=== PATIENT | male | born 1995 | race African-American/Black ===

== ENCOUNTER 2016-05-24 14:42 | Emergency (ER) | payer BC ==
[~2016-05-24] VITALS: Ht 188 cm; Wt 76.2 kg
[~2016-05-24 14:42] MED LIST: BENZ2TAB5 PO; PALI234D IM
--- NOTE | 2016-05-24 16:03 | PHYS DOC ---
Past Medical History Past Medical History: Anxiety, Depression, GERD, Other Additional Past Medical Histor: schizoaffective disorder Past Surgical History: No Surgical History Additional Information: 1 PPD Alcohol Use: Occasionally Drug Use: Marijuana Adult General Chief Complaint Chief Complaint: ABDOMINAL PAIN HPI HPI Patient is a 21 year old male who presents with abdominal pain. Patient reports for the past 4 months he has been having intermittent mild periumbilical pain. This pain has gotten worse the past two days. He describes a cramping, sharp pain that waxes and wanes without mitigating factors. Other symptoms include nausea, chills, diarrhea. He has not taken anything for symptoms at home. No other acute complaints. Review of Systems Review of Systems Constitutional: Chills. Denies fever Eyes: Denies change in visual acuity or eye pain HENT: Denies nasal congestion or sore throat Respiratory: Denies cough or shortness of breath Cardiovascular: Denies chest pain GI: Periumbilical pain, nausea, diarrhea. Denies vomiting, bloody stools : Denies dysuria or hematuria Musculoskeletal: Denies back pain or joint pain Integument: Denies rash or skin lesions Neurologic: Denies headache, focal weakness or sensory changes Current Medications Current Medications Current Medications Medications (Trade) Dose Ordered Sig/Ansley Start Time Stop Time Status Last Admin Dose Admin Famotidine (Pepcid) 20 mg 1X ONCE 05/24/16 16:15 05/24/16 16:16 DC 05/24/16 16:30 20 MG Multi-Ingredient Mouthwash/Gargle (Gi Cocktail Single Dose) 15 ml 1X ONCE 05/24/16 16:15 05/24/16 16:16 DC 05/24/16 16:30 15 ML Ondansetron HCl (Zofran Odt) 4 mg 1X ONCE 05/24/16 16:15 05/24/16 16:16 DC 05/24/16 16:30 4 MG Allergies Allergies Allergies Coded Allergies Type Severity Reaction Last Updated Verified No Known Drug Allergies 11/15/15 No Physical Exam Physical Exam Constitutional: Well developed, well nourished, no acute distress, non-toxic appearance HENT: Normocephalic, atraumatic, bilateral external ears normal Eyes: EOMI, conjunctiva normal, no discharge Neck: Normal range of motion, no stridor Cardiovascular: Heart rate normal, regular rhythm, no murmur Lungs & Thorax: Bilateral breath sounds clear to auscultation Abdomen: Bowel sounds normal, soft, non-distended, mild LUQ/epigastric TTP without guarding or rebound Skin: Warm, dry, no erythema, no rash Extremities: No obvious deformity, no edema Neurologic: Alert and oriented X 3, no gross deficits noted Current Patient Data Vital Signs Vital Signs Date Time Temp Pulse Resp B/P Pulse Ox O2 Delivery O2 Flow Rate FiO2 05/24/16 17:25 80 16 130/63 99 Room Air 05/24/16 14:56 97.9 97.9 Lab Values Laboratory Tests Test 05/24/16 16:40 White Blood Count 6.8x10^3/uL (4.0-11.0) Red Blood Count 5.24x10^6/uL (4.30-5.70) Hemoglobin 16.1g/dL (13.0-17.5) Hematocrit 47.3% (39.0-53.0) Mean Corpuscular Volume 90fL (79-100) Mean Corpuscular Hemoglobin 31pg (25-35) Mean Corpuscular Hemoglobin Concent 34g/dL (31-37) Red Cell Distribution Width 12.3% (11.5-14.5) Platelet Count 126x10^3/uL (140-400) L Neutrophils (%) (Auto) 69% (31-73) Lymphocytes (%) (Auto) 17% (24-48) L Monocytes (%) (Auto) 12% (0-9) H Eosinophils (%) (Auto) 1% (0-3) Basophils (%) (Auto) 1% (0-3) Neutrophils # (Auto) 4.7x10^3uL (1.8-7.7) Lymphocytes # (Auto) 1.1x10^3/uL (1.0-4.8) Monocytes # (Auto) 0.8x10^3/uL (0.0-1.1) Eosinophils # (Auto) 0.1x10^3/uL (0.0-0.7) Basophils # (Auto) 0.1x10^3/uL (0.0-0.2) Sodium Level 140mmol/L (136-145) Potassium Level 3.7mmol/L (3.5-5.1) Chloride Level 102mmol/L (98-107) Carbon Dioxide Level 30mmol/L (21-32) Anion Gap 8 (6-14) Blood Urea Nitrogen 13mg/dL (8-26) Creatinine 1.0mg/dL (0.7-1.3) Estimated GFR (Cockcroft-Gault) 112.0 BUN/Creatinine Ratio 13 (6-20) Glucose Level 79mg/dL (70-99) Calcium Level 9.4mg/dL (8.5-10.1) Total Bilirubin 0.6mg/dL (0.2-1.0) Aspartate Amino Transferase (AST) 16U/L (15-37) Alanine Aminotransferase (ALT) 20U/L (16-63) Alkaline Phosphatase 75U/L (46-116) Total Protein 7.4g/dL (6.4-8.2) Albumin 4.5g/dL (3.4-5.0) Albumin/Globulin Ratio 1.6 (1.0-1.7) Lipase 80U/L (73-393) Laboratory Tests 05/24/16 16:40 Laboratory Tests 05/24/16 16:40 EKG EKG [] Radiology/Procedures Radiology/Procedures [] Course & Med Decision Making Course & Med Decision Making Pertinent Labs and Imaging studies reviewed. (See chart for details) Patient is 21-year-old male who presents with abdominal pain, nausea, diarrhea. Likely gastroenteritis. No overly concerning findings on physical exam. Will check labs. Zofran, Pepcid, GI cocktail ordered for symptom relief. Labs unremarkable. Discussed results with patient. Discharged with prescription for Zofran, dicyclomine, instructions for follow-up, return precautions. Dragon Disclaimer Dragon Disclaimer This electronic medical record was generated, in whole or in part, using a voice recognition dictation system. Departure Departure Impression: Primary Impression: Gastroenteritis Disposition: 01 HOME, SELF-CARE Condition: STABLE Referrals: JULIUS BAXTER PA-C (PCP) Patient Instructions: Viral Gastroenteritis Additional Instructions: Thank you for allowing us to provide care today in the Emergency Department. Take the provided medication as directed. Schedule a follow up appointment with your primary care doctor. Return promptly to the Emergency Department if you develop any new or concerning symptoms. Scripts Ondansetron (Zofran Odt)4 Mg Tab.rapdis1 Tab SL Q8HRS PRN NAUSEA #10 TAB Prov:JOSH OLIVEROS MD 05/24/16 Dicyclomine Hcl 10 Mg Capsule1 Cap PO PRN Q6HRS PRN abdominal cramping #20 CAP Ref 0 Prov:JOSH OLIVEROS MD 05/24/16 JOSH OLIVEROS MD May 24, 2016 16:03
[2016-05-24] MEDS ORDERED: FAMOTIDINE 20 MG TABLET. PO ONE (16:15)
[2016-05-24] MEDS ORDERED: ONDANSETRON ODT 4 MG TAB.RAPDIS PO ONE (16:15)
[2016-05-24] MEDS ORDERED: LIDO:MAALOX:DONNATAL 1:1:1 15 ML SINGLE DOSE SWSW ONE (16:15)
[2016-05-24 16:50] LABS: BASO # 0.1 x10^3/uL (0.0-0.2); BASO % 1 % (0-3); EOS % 1 % (0-3); HEMATOCRIT 47.3 % (39.0-53.0); HEMOGLOBIN 16.1 g/dL (13.0-17.5); LYMPH # 1.1 x10^3/uL (1.0-4.8); LYMPH % 17 % (24-48); MEAN CORPUSCULAR HEMOGLOBIN 31 pg (25-35); MEAN CORPUSCULAR HGB CONC 34 g/dL (31-37); MEAN CORPUSCULAR VOLUME 90 fL (79-100); MONO % 12 % (0-9); NEUT % 69 % (31-73); PLATELET COUNT 126 x10^3/uL (140-400); RED BLOOD COUNT 5.24 x10^6/uL (4.30-5.70); RED CELL DISTRIBUTION WIDTH 12.3 % (11.5-14.5); WHITE BLOOD COUNT 6.8 x10^3/uL (4.0-11.0)
[2016-05-24 16:59] LABS: CALCIUM 9.4 mg/dL (8.5-10.1); POTASSIUM 3.7 mmol/L (3.5-5.1)
[2016-05-24 17:05] LABS: ALBUMIN 4.5 g/dL (3.4-5.0); ALBUMIN/GLOBULIN RATIO 1.6 (1.0-1.7); TOTAL BILIRUBIN 0.6 mg/dL (0.2-1.0); TOTAL PROTEIN 7.4 g/dL (6.4-8.2)
[2016-05-24] MEDS ORDERED: ONDA4TAB10 SL (17:17)
[2016-05-24] MEDS ORDERED: DICY10CA3 PO (17:17)
[2016-05-24 17:25] VITALS: BP 130/63
== END 2016-05-24 17:29 | disposition home or self-care (01) ==
LOC: ER 14:42
DX: K52.9 Noninfective gastroenteritis and colitis, unspecified (principal); K21.9 Gastro-esophageal reflux disease without esophagitis; F12.10 Cannabis abuse, uncomplicated; F17.200 Nicotine dependence, unspecified, uncomplicated
CPT/HCPCS: 36415; 80053; 83690; 85027; 99284; Q0162

== ENCOUNTER 2016-11-14 20:48 | Emergency (ER) | payer BC ==
[~2016-11-14] VITALS: Ht 185.4 cm; Wt 73.9 kg
[~2016-11-14 20:48] MED LIST changes: +DICY10CA3 PO; +ONDA4TAB10 SL
[2016-11-14] MEDS ORDERED: METOCLOPRAMIDE HCL 10 MG/2 ML VIAL. IV ONE (21:15)
[2016-11-14] MEDS ORDERED: diphenhydrAMINE 50 MG/ML VIAL IVP ONE (21:15)
[2016-11-14] MEDS ORDERED: PROCHLORPERAZINE 10 MG/2 ML VIAL. IV ONE (21:15)
[2016-11-14] MEDS ORDERED: IV NORMAL SALINE 1000ML BAG 1,000 ML IV ONE (21:15)
--- NOTE | 2016-11-14 21:23 | ED.ADGEN ---
Past Medical History Past Medical History: Anxiety, Depression, Other Additional Past Medical Histor: ADD, ADJUSTMENT DISORDER, SCHIZOAFFECTIVE DISORDER Past Surgical History: No Surgical History Alcohol Use: Occasionally Drug Use: Marijuana, Other Social History Narrative: [facility] Adult General Chief Complaint Chief Complaint: DIZZY/LIGHT HEADED HPI HPI Patient is a 21 year old AA male with with history of cluster and tension headaches who presents with persistent headache 12 hours. Headache described as bandlike and is located around forehead. Associated with nausea. Patient's taken any medication for his headache. He has history of schizoaffective disorder and ADD has been off all his medications for 36 hours. He reports increased stress due to verbal conflict with his girlfriend. He states he has not slept for the past 30 hours. Patient was seen by his psychiatrist earlier today encouraged to resume his psychiatric medications. Patient denies neck pain , stiffness, vomiting, extremity weakness, rash or fever. No other acute symptoms or complaints. Patient arrived by EMS. Review of Systems Review of Systems ROS as per HPI. Current Medications Current Medications Current Medications Medications (Trade) Dose Ordered Sig/Ansley Start Time Stop Time Status Last Admin Dose Admin Diphenhydramine HCl (Benadryl) 50 mg 1X ONCE 11/14/16 21:15 11/14/16 21:16 DC 11/14/16 21:24 50 MG Metoclopramide HCl (Reglan) 10 mg 1X ONCE 11/14/16 21:15 11/14/16 21:16 DC 11/14/16 21:25 10 MG Prochlorperazine Edisylate (Compazine) 10 mg 1X ONCE 11/14/16 21:15 11/14/16 21:16 DC 11/14/16 21:24 10 MG Sodium Chloride 1,000 ml @ 1,000 mls/hr 1X ONCE 11/14/16 21:15 11/14/16 22:14 DC 11/14/16 21:23 1,000 MLS/HR Allergies Allergies Allergies Coded Allergies Type Severity Reaction Last Updated Verified No Known Drug Allergies 11/15/15 No Physical Exam Physical Exam Constitutional: Well developed, well nourished, no acute distress, non-toxic appearance. HENT: Normocephalic, atraumatic, bilateral external ears normal, oropharynx moist, no oral exudates, nose normal. Eyes: PERRL. Neck: Normal range of motion, no midline TTP. Cardiovascular:Heart rate regular rhythm, no murmur. Lungs & Thorax: Bilateral breath sounds clear to auscultation. Abdomen: Bowel sounds normal, soft, no tenderness. Skin: Warm, dry, no erythema. Back: No tenderness. Extremities: No tenderness. Neurologic: Alert and oriented X 3, normal motor function, normal sensory function. Psychologic: Affect normal, judgement normal, mood normal. Current Patient Data Vital Signs Vital Signs Date Time Temp Pulse Resp B/P (MAP) Pulse Ox O2 Delivery O2 Flow Rate FiO2 11/14/16 22:15 117/56 (76) 96 Room Air 11/14/16 20:55 97.9 88 16 97.9 EKG EKG [] Radiology/Procedures Radiology/Procedures [] Course & Med Decision Making Course & Med Decision Making Pertinent Labs and Imaging studies reviewed. (See chart for details) [No neurologic deficits. Typical tension type headache. Symptoms resolved with treatment. Recommend home supportive care with PCP follow-up.] Ru Disclaimer Ru Disclaimer This electronic medical record was generated, in whole or in part, using a voice recognition dictation system. OCTAVIA VEGA DO Nov 14, 2016 21:23
[2016-11-14 22:15] VITALS: BP 117/56
== END 2016-11-14 22:34 | disposition home or self-care (01) ==
LOC: ER 20:48
DX: R51 Headache (principal); F25.9 Schizoaffective disorder, unspecified; F98.8 Other specified behavioral and emotional disorders with onset usually occurring in childhood and adolescence; F41.9 Anxiety disorder, unspecified; F32.9 Major depressive disorder, single episode, unspecified; F12.10 Cannabis abuse, uncomplicated
CPT/HCPCS: 96361; 96374; 96375; 99284; J0780; J1200; J2765; J7030

== ENCOUNTER 2017-01-08 07:30 | Emergency (ER) | payer BC ==
[2017-01-08 08:07] VITALS: BP 152/82
[2017-01-08] MEDS ORDERED: HYDR25CA PO (08:30)
[2017-01-08] MEDS ORDERED: DOXY100C2 PO (08:30)
--- NOTE | 2017-01-08 08:32 | PHYS DOC ---
Past Medical History Past Medical History: Anxiety, Depression, Other Additional Past Medical Histor: ADD, ADJUSTMENT DISORDER, SCHIZOAFFECTIVE DISORDER Past Surgical History: No Surgical History Alcohol Use: Occasionally Drug Use: Marijuana, Other Adult General Chief Complaint Chief Complaint: COUGH HPI HPI Patient is a 21 year old male presents to the emergency department stating that he has having had congestion with occasional dizziness. A cough that is nonproductive, chills, nausea feeling after coughing. He states that he's had some loose stools however he does not really classify him as diarrhea. Patient states that he has a history of anxiety and is requesting Ativan. Patient states that he has not taken anything for his symptoms. Patient does state he has a history of asthma however he has a albuterol inhaler filled at one of the pharmacies and cost $50 and he does not have the money to purchase the inhaler at this time. He states he did not go see his primary care physician due to the fact she was unable to provide pavement. Review of Systems Review of Systems Constitutional: Denies fever or chills [] Eyes: Denies change in visual acuity, redness, or eye pain [] HENT: nasal congestion denies sore throat [] Respiratory: cough denies shortness of breath [] Cardiovascular: No additional information not addressed in HPI [] GI: Denies abdominal pain, vomiting, bloody stools or diarrhea. Complaint and nausea : Denies dysuria or hematuria [] Musculoskeletal: Denies back pain or joint pain [] Integument: Denies rash or skin lesions [] Neurologic: Denies headache, focal weakness or sensory changes [] Endocrine: Denies polyuria or polydipsia [] Allergies Allergies Allergies Coded Allergies Type Severity Reaction Last Updated Verified No Known Drug Allergies 11/15/15 No Physical Exam Physical Exam Constitutional: Well developed, well nourished, no acute distress, non-toxic appearance. [] HENT: Normocephalic, atraumatic, bilateral external ears normal, oropharynx moist, no oral exudates, nose normal. Bilateral tympanic membranes appear to be normal. Throat with postnasal drip, redness no erythematous no exudate noted. No anterior cervical adenopathy noted Eyes: PERRLA, EOMI, conjunctiva normal, no discharge. [] Neck: Normal range of motion, no tenderness, supple, no stridor. [] Cardiovascular:Heart rate regular rhythm, no murmur [] Lungs & Thorax: Bilateral breath sounds clear to auscultation [] Abdomen: Bowel sounds hypoactive, soft, no tenderness, no masses, no pulsatile masses. [] Skin: Warm, dry, no erythema, no rash. [] Back: No tenderness Extremities: No tenderness, no cyanosis, no clubbing, ROM intact, no edema. [] Neurologic: Alert and oriented X 3, normal motor function, normal sensory function, no focal deficits noted. [] Psychologic: Affect normal, judgement normal, mood normal. [] Current Patient Data Vital Signs Vital Signs Date Time Temp Pulse Resp B/P (MAP) Pulse Ox O2 Delivery O2 Flow Rate FiO2 01/08/17 08:07 98.5 96 16 152/82 (105) 100 Room Air 98.5 EKG EKG [] Radiology/Procedures Radiology/Procedures [] Course & Med Decision Making Course & Med Decision Making Pertinent Labs and Imaging studies reviewed. (See chart for details) Patient will be discharged home with a prescription for doxycycline to help with upper respiratory and a sinusitis infection. Recommended that he fill his prescription for his pro-air to help with breathing. Patient was also encouraged to stop smoking. Patient will also be provided with Vistaril to help with his nausea feeling as well as anxiety. Patient is requesting information in regards to Vistaril. Patient will be discharged home in stable condition signs and symptoms to return back to emergency department been provided. Recommended that he follow-up with his primary care physician in the next 5-7 days. Patient agrees with discharge instructions, treatment regimens and follow- up recommendations. All questions and concerns have been answered at the patient 's bedside. [] Dragon Disclaimer Dragon Disclaimer This electronic medical record was generated, in whole or in part, using a voice recognition dictation system. Departure Departure Impression: Primary Impression: URI (upper respiratory infection) Additional Impressions: Sinusitis, acute Anxiety Nausea alone Disposition: 01 HOME, SELF-CARE Condition: STABLE Referrals: JULIUS BAXTER PA-C (PCP) Patient Instructions: Anxiety and Panic Attacks, [id number], Nausea, Adult, [id number], Sinusitis, [id number], Smoking Cessation, Tips For Success, Upper Respiratory Infection, Adult, [id number] Additional Instructions: Activity as tolerated. Medications as prescribed. You may also use Sudafed [id number] to help with nasal congestion and postnasal drip. It is important that you obtain your inhaler to help with your asthma. Stop smoking. Follow-up to primary care physician in the next 5-7 days. Return back to emergency prior signs and symptoms of become worse. Vistaril: Mechanism of Action Competes with histamine for H1-receptor sites on effector cells in the gastrointestinal tract, blood vessels, and respiratory tract. Possesses skeletal muscle relaxing, bronchodilator, antihistamine, antiemetic, and analgesic properties. Scripts Hydroxyzine Pamoate (VISTARIL) 25 Mg Capsule 1 CAP PO TID Y for ANXIETY / AGITATION, #90 CAP 1 Refill Prov: ANNIE ELENA APRN 01/08/17 Doxycycline Hyclate (DOXYCYCLINE HYCLATE) 100 Mg Capsule 1 CAP PO BID, #20 CAP Prov: ANNIE ELENA APRN 01/08/17 Problem Qualifiers Primary Impression: URI (upper respiratory infection) URI type: unspecified URI Qualified Codes: J06.9 - Acute upper respiratory infection, unspecified Additional Impressions: Sinusitis, acute Sinusitis location: unspecified location Recurrence: not specified as recurrent Qualified Codes: J01.90 - Acute sinusitis, unspecified ANNIE ELENA APRN Jan 08, 2017 08:32
== END 2017-01-08 08:50 | disposition home or self-care (01) ==
LOC: ER 07:30
DX: J06.9 Acute upper respiratory infection, unspecified (principal); J01.90 Acute sinusitis, unspecified; F41.9 Anxiety disorder, unspecified; R11.0 Nausea; R42 Dizziness and giddiness; F32.9 Major depressive disorder, single episode, unspecified; J45.909 Unspecified asthma, uncomplicated; F25.9 Schizoaffective disorder, unspecified; F98.8 Other specified behavioral and emotional disorders with onset usually occurring in childhood and adolescence; Z79.899 Other long term (current) drug therapy
CPT/HCPCS: 99283

== ENCOUNTER 2017-01-25 05:53 | Emergency (ER) | payer BC ==
[~2017-01-25] VITALS: Ht 185.4 cm; Wt 68.0 kg
[~2017-01-25 05:53] MED LIST changes: +DOXY100C2 PO; +HYDR25CA PO
[2017-01-25 06:29] LABS: CALCIUM 9.2 mg/dL (8.5-10.1); CREATININE 1.1 mg/dL (0.7-1.3); GFR 100.4; MAGNESIUM 1.8 mg/dL (1.8-2.4); POTASSIUM 3.9 mmol/L (3.5-5.1)
[2017-01-25 06:30] LABS: BASO # 0.1 x10^3/uL (0.0-0.2); BASO % 2 % (0-3); EOS % 3 % (0-3); HEMOGLOBIN 16.4 g/dL (13.0-17.5); LYMPH # 1.5 x10^3/uL (1.0-4.8); LYMPH % 31 % (24-48); MEAN CORPUSCULAR HEMOGLOBIN 31 pg (25-35); MEAN CORPUSCULAR HGB CONC 35 g/dL (31-37); MEAN CORPUSCULAR VOLUME 90 fL (79-100); MONO % 11 % (0-9); NEUT % 54 % (31-73); PLATELET COUNT 153 x10^3/uL (140-400); RED BLOOD COUNT 5.22 x10^6/uL (4.30-5.70); RED CELL DISTRIBUTION WIDTH 13.1 % (11.5-14.5); WHITE BLOOD COUNT 4.9 x10^3/uL (4.0-11.0)
[2017-01-25] MEDS ORDERED: IV NORMAL SALINE 1000ML BAG 1,000 ML IV SCH (06:30)
--- NOTE | 2017-01-25 06:46 | PHYS DOC ---
Past Medical History Past Medical History: Anxiety, Asthma, Depression, Other Additional Past Medical Histor: ADD, ADJUSTMENT DISORDER, SCHIZOAFFECTIVE DISORDER Past Surgical History: No Surgical History Alcohol Use: Occasionally Drug Use: Marijuana, Methamphetamine, Opiates, Other Adult General Chief Complaint Chief Complaint: dizziness HPI HPI Patient is a 21 year old male who presents with complaint of dizziness. Patient states he awoke with dizziness and anxiety this morning. Patient also noted that he had pain to his right shoulder and was concerned that he either injured it or possibly dislocated his shoulder. Patient states that he smoked marijuana to try to help with his anxiety this morning but states that his dizziness has been worsening. Patient also admits to use of "Street Manderson" as well as methamphetamine. Patient states that he took the Manderson yesterday as a recreational drug. Patient has history of anxiety, asthma, and schizoaffective disorder. Patient denies any known injury to the right shoulder. Patient states that he uses Manderson and marijuana to self medicate for anxiety. Due to his multiple complaints, the patient came to the emergency department to be evaluated to make sure "everything was okay." The patient denies a sensation of the room spinning but states that he gets very lightheaded when he tries to stand up. Patient does admit to decreased oral intake over the past 2-3 days. Patient denies nausea, vomiting, or abdominal pain. Review of Systems Review of Systems Constitutional: Anxiety, lightheadedness, denies fever or chills [] Eyes: Denies change in visual acuity, redness, or eye pain [] HENT: Denies nasal congestion or sore throat [] Respiratory: Denies cough or shortness of breath [] Cardiovascular: Denies chest pain or edema[] GI: Denies abdominal pain, nausea, vomiting, bloody stools or diarrhea [] : Denies dysuria or hematuria [] Musculoskeletal: Right shoulder pain[] Integument: Denies rash or skin lesions [] Neurologic: Denies headache, focal weakness or sensory changes [] Current Medications Current Medications Current Medications Medications (Trade) Dose Ordered Sig/Ansley Start Time Stop Time Status Last Admin Dose Admin Sodium Chloride 1,000 ml @ 1,000 mls/hr 1X ONCE 01/25/17 08:00 01/25/17 08:59 DC 01/25/17 07:57 1,000 MLS/HR Allergies Allergies Allergies Coded Allergies Type Severity Reaction Last Updated Verified No Known Drug Allergies 11/15/15 No Physical Exam Physical Exam Constitutional: Alert, afebrile, appears malnourished and mildly anxious. [] HENT: Normocephalic, atraumatic, bilateral external ears normal, oropharynx moist, no oral exudates, nose normal. [] Eyes: PERRLA, EOMI, conjunctiva normal, no discharge. [] Neck: Normal range of motion, no tenderness, supple, no stridor. [] Cardiovascular:Heart rate regular rhythm, no murmur [] Lungs & Thorax: Bilateral breath sounds clear to auscultation [] Abdomen: Bowel sounds normal, soft, no tenderness, no masses, no pulsatile masses. [] Skin: Warm, dry, no erythema, no rash. [] Back: No tenderness, no CVA tenderness. [] Extremities: No shoulder tenderness to palpation, no cyanosis, no clubbing, ROM intact in all major joints including right shoulder, no edema. [] Neurologic: Alert and oriented X 3, normal motor function, normal sensory function, no focal deficits noted. [] Current Patient Data Vital Signs Vital Signs Date Time Temp Pulse Resp B/P (MAP) Pulse Ox O2 Delivery O2 Flow Rate FiO2 01/25/17 06:10 97.7 75 12 97/58 (71) 99 Room Air 97.7 Lab Values Laboratory Tests Test 01/25/17 06:10 01/25/17 06:14 White Blood Count 4.9 x10^3/uL (4.0-11.0) Red Blood Count 5.22 x10^6/uL (4.30-5.70) Hemoglobin 16.4 g/dL (13.0-17.5) Hematocrit 47.0 % (39.0-53.0) Mean Corpuscular Volume 90 fL (79-100) Mean Corpuscular Hemoglobin 31 pg (25-35) Mean Corpuscular Hemoglobin Concent 35 g/dL (31-37) Red Cell Distribution Width 13.1 % (11.5-14.5) Platelet Count 153 x10^3/uL (140-400) Neutrophils (%) (Auto) 54 % (31-73) Lymphocytes (%) (Auto) 31 % (24-48) Monocytes (%) (Auto) 11 % (0-9) H Eosinophils (%) (Auto) 3 % (0-3) Basophils (%) (Auto) 2 % (0-3) Neutrophils # (Auto) 2.7 x10^3uL (1.8-7.7) Lymphocytes # (Auto) 1.5 x10^3/uL (1.0-4.8) Monocytes # (Auto) 0.5 x10^3/uL (0.0-1.1) Eosinophils # (Auto) 0.1 x10^3/uL (0.0-0.7) Basophils # (Auto) 0.1 x10^3/uL (0.0-0.2) Sodium Level 141 mmol/L (136-145) Potassium Level 3.9 mmol/L (3.5-5.1) Chloride Level 104 mmol/L (98-107) Carbon Dioxide Level 32 mmol/L (21-32) Anion Gap 5 (6-14) L Blood Urea Nitrogen 11 mg/dL (8-26) Creatinine 1.1 mg/dL (0.7-1.3) Estimated GFR (Cockcroft-Gault) 100.4 Glucose Level 122 mg/dL (70-99) H Calcium Level 9.2 mg/dL (8.5-10.1) Magnesium Level 1.8 mg/dL (1.8-2.4) Urine Collection Type Unknown Urine Color Tonya Urine Clarity Clear Urine pH 6.0 Urine Specific [place] 1.025 Urine Protein Negative mg/dL (NEG-TRACE) Urine Glucose (UA) Negative mg/dL (NEG) Urine Ketones (Stick) Negative mg/dL (NEG) Urine Blood Negative (NEG) Urine Nitrite Negative (NEG) Urine Bilirubin Small (NEG) Urine Urobilinogen Dipstick 1.0 mg/dL (0.2 mg/dL) Urine Leukocyte Esterase Negative (NEG) Urine RBC 0 /HPF (0-2) Urine WBC Rare /HPF (0-4) Urine Squamous Epithelial Cells Few /LPF Urine Bacteria 0 /HPF (0-FEW) Urine Mucus Slight /LPF Urine Opiates Screen Pos (NEG) Urine Methadone Screen Neg (NEG) Urine Barbiturates Neg (NEG) Urine Phencyclidine Screen Neg (NEG) Urine Amphetamine/Methamphetamine Neg (NEG) Urine Benzodiazepines Screen Neg (NEG) Urine Cocaine Screen Neg (NEG) Urine Cannabinoids Screen Pos (NEG) Urine Ethyl Alcohol Neg (NEG) Laboratory Tests 01/25/17 06:10 Laboratory Tests 01/25/17 06:10 EKG EKG Interpreted by me: Heart rate 71, sinus rhythm, normal intervals, normal axis, no acute ST/T-wave abnormalities present[] Radiology/Procedures Radiology/Procedures Not performed[] Course & Med Decision Making Course & Med Decision Making Pertinent Labs and Imaging studies reviewed. (See chart for details) Patient was given 2 L of IV fluids in the emergency department with improvement in symptoms. Patient's lab work showed concentrated urine but no other significant abnormalities. The patient did test positive for opiates and marijuana which she admitted to during history. Patient was counseled on discontinuing use of drugs for self-medication and counseled on the dangers of using street drugs. Patient voiced understanding. Advised patient to follow-up in 3-4 days for reevaluation and advised return emergency department for any worsening symptoms. Patient voiced understanding and in agreement with treatment plan. Dragon Disclaimer Dragon Disclaimer This electronic medical record was generated, in whole or in part, using a voice recognition dictation system. Departure Departure Impression: Primary Impression: Dehydration Additional Impressions: Substance abuse Right shoulder pain Disposition: HOME, SELF-CARE Condition: IMPROVED Referrals: KOLTON DAVID (PCP) Patient Instructions: Dehydration, Adult, Shoulder Pain, Substance Abuse-Brief Additional Instructions: Follow-up with your primary doctor in the next 3 days for reevaluation. Return to the emergency department for any worsening symptoms. Scripts Ibuprofen (IBUPROFEN) 600 Mg Tablet 600 MG PO Q6HRS Y for PAIN, #30 TAB Prov: PRACHI DYKES MD 01/25/17 Problem Qualifiers Additional Impressions: Right shoulder pain Chronicity: acute Qualified Codes: M25.511 - Pain in right shoulder PRACHI DYKES MD Jan 25, 2017 06:46
[2017-01-25] MEDS ORDERED: IV NORMAL SALINE 1000ML BAG 1,000 ML IV ONE (08:00)
[2017-01-25 08:04] LABS: BILIRUBIN,URINE SMALL (NEG); GLUCOSE,URINE NEGATIVE (NEG); NITRITE,URINE NEGATIVE (NEG); PROTEIN,URINE NEGATIVE (NEG-TRACE)
[2017-01-25 08:11] LABS: BARBITURATES NEG (NEG); BENZODIAZEPINES NEG (NEG); CANNABINOIDS POS (NEG); COCAINE NEG (NEG); METHADONE NEG (NEG); OPIATES POS (NEG); PHENCYCLIDINE NEG (NEG)
[2017-01-25 08:23] LABS: BACTERIA,URINE 0 /HPF (0-FEW); RBC,URINE 0 /HPF (0-2); SQUAMOUS EPITHELIAL CELL,UR FEW /LPF; WBC,URINE RARE /HPF (0-4)
[2017-01-25] MEDS ORDERED: IBUP-1007 PO (08:46)
[2017-01-25 08:56] VITALS: BP 93/52
--- NOTE | 2017-01-26 06:11 | EKG ---
[facility] [address] [place] [address] Test Date: 2017-01-25 Test Time: 06:25:36 Pat Name: PARISH VEGA Department: Room: Gender: M Planning Engineer: : 1995 Requested By: PRACHI DYKES Order Number: [id number] Reading MD: Measurements Intervals [place] Rate: 71 P: 66 MD: 142 QRS: 68 QRSD: 102 T: 61 QT: 344 QTc: 378 Interpretive Statements SINUS RHYTHM INCOMPLETE RIGHT BUNDLE BRANCH BLOCK QRS(T) CONTOUR ABNORMALITY CONSIDER ANTEROSEPTAL MYOCARDIAL DAMAGE RI6.01 Unconfirmed report No previous ECG available for comparison
== END 2017-01-25 09:04 | disposition home or self-care (01) ==
LOC: ER 05:53
DX: E86.0 Dehydration (principal); M25.511 Pain in right shoulder; F12.10 Cannabis abuse, uncomplicated; F15.10 Other stimulant abuse, uncomplicated; F11.10 Opioid abuse, uncomplicated; F41.9 Anxiety disorder, unspecified; F32.9 Major depressive disorder, single episode, unspecified; J45.909 Unspecified asthma, uncomplicated; F25.9 Schizoaffective disorder, unspecified; F98.8 Other specified behavioral and emotional disorders with onset usually occurring in childhood and adolescence
CPT/HCPCS: 36415; 80048; 80307; 81001; 83735; 85025; 93005; 96360; 96361; 99285; J7030; G0479

== ENCOUNTER 2017-03-31 20:01 | Emergency (ER) | payer BC ==
[~2017-03-31 20:01] MED LIST changes: +IBUP-1007 PO; +OMEP20TA63 PO; +ONDA4TAB10 PO; +PRED20TA PO
[2017-03-31 20:26] VITALS: BP 151/80
--- NOTE | 2017-03-31 21:57 | PHYS DOC ---
Past Medical History Past Medical History: Anxiety, Asthma, Depression, GERD Additional Past Medical Histor: ADD, ADJUSTMENT DISORDER, SCHIZOAFFECTIVE DISORDER Past Surgical History: No Surgical History Alcohol Use: Occasionally Drug Use: Marijuana, Methamphetamine, Opiates, Other Adult General Chief Complaint Chief Complaint: ABDOMINAL PAIN HPI HPI Patient is a 21 year old gentleman who presents to the ER today secondary to feeling constipated. Patient was seen here 2 days ago secondary to abdominal discomfort. Patient reports that he went home took a bottle mag citrate yesterday and then today to the fleets enema and a second bottle of mag citrate. Patient was concerned because we have a bowel movement today he reports his bowel movements looked stringy and he thought that he might have worms in his stool. Patient denies any other symptomatology. Patient has any fevers shakes chills nausea vomiting diarrhea chest pain shortness of breath cough cold rhinorrhea or abdominal pain. Patient has no past medical history of hypertension diabetes lung or liver or kidney problems. Patient reports she smokes tobacco and marijuana but no alcohol. Patient has no known drug allergies. Review of systems: Constitutional: Denies fever or chills Eyes: Denies change in visual acuity, redness, or eye pain HENT: Denies nasal congestion or sore throat All other systems were reviewed and found to be within normal limits, except as documented in this note. Physical exam: Constitutional: Well developed, well nourished, no acute distress, non-toxic appearance. HENT: Normocephalic, atraumatic, bilateral external ears normal Eyes: PERRLA, EOMI, conjunctiva normal, no discharge. Neck: Normal range of motion, no tenderness, supple, no stridor. Cardiovascular:Heart rate regular rhythm Lungs & Thorax: Bilateral breath sounds clear to auscultation Abdomen: Bowel sounds normal, soft, no tenderness, no masses, no pulsatile masses. Skin: Warm, dry, no erythema, no rash. Back: No tenderness, no CVA tenderness. Extremities: No tenderness, no cyanosis, no clubbing, ROM intact, no edema. Neurologic: Alert and oriented X 3, normal motor function, normal sensory function, no focal deficits noted. Psychologic: Affect normal, judgement normal, mood normal. Assessment and plan: 21-year-old gentleman who presents here today concerned that he might have parasites in the stool. Patient fortunately took a picture of his stool with his iPhone and was able to show up to me on his iPhone. I discussed with the patient that I am not able to discern whether not this is stringy stool or parasites and we will need to send a stool sample for him. Patient has no other complaints. Patient feels well otherwise and is requesting to leave after giving his stool sample. Patient was instructed to call the ER for his results in 1-2 days. No change in care her therapy at this time. Allergies Allergies Allergies Coded Allergies Type Severity Reaction Last Updated Verified No Known Drug Allergies 11/15/15 No Current Patient Data Vital Signs Vital Signs Date Time Temp Pulse Resp B/P (MAP) Pulse Ox O2 Delivery O2 Flow Rate FiO2 03/31/17 20:26 98.3 102 16 151/80 (103) 97 Room Air 98.3 EKG EKG [] Radiology/Procedures Radiology/Procedures [] Course & Med Decision Making Course & Med Decision Making Pertinent Labs and Imaging studies reviewed. (See chart for details) [] Dragon Disclaimer Dragon Disclaimer This electronic medical record was generated, in whole or in part, using a voice recognition dictation system. Departure Departure Impression: Primary Impression: Gastroenteritis Disposition: HOME, SELF-CARE Condition: STABLE Referrals: NO PCP (PCP) Patient Instructions: Ova and Parasite Exam Additional Instructions: Your stool has been sent to the lab to evaluate further for any parasites. Please call in one to 2 days for test results. DELIA KATZ MD Mar 31, 2017 21:57
== END 2017-03-31 22:44 | disposition home or self-care (01) ==
LOC: ER 20:01
DX: K52.9 Noninfective gastroenteritis and colitis, unspecified (principal); K21.9 Gastro-esophageal reflux disease without esophagitis; J45.909 Unspecified asthma, uncomplicated; F25.9 Schizoaffective disorder, unspecified; F43.20 Adjustment disorder, unspecified; F12.10 Cannabis abuse, uncomplicated; Z72.0 Tobacco use
CPT/HCPCS: 87177; 87205; 99283; 99284

== ENCOUNTER 2017-04-07 19:00 | Emergency (ER) | payer BC ==
[~2017-04-07] VITALS: Ht 185.4 cm; Wt 63.5 kg
[2017-04-07 19:23] VITALS: BP 149/85
--- NOTE | 2017-04-07 19:52 | PHYS DOC ---
Past Medical History Past Medical History: Anxiety, Asthma, Depression, GERD Additional Past Medical Histor: ADD, ADJUSTMENT DISORDER, SCHIZOAFFECTIVE DISORDER Past Surgical History: No Surgical History Alcohol Use: Occasionally Drug Use: Marijuana, Methamphetamine, Opiates, Other Adult General Chief Complaint Chief Complaint: CONTISPATION HPI HPI 21-year-old male presenting to the emergency department today with constipation. He reports recent marijuana use. He describes having small bowel movement today but feels constipated. He has been passing some gas. The pain in his abdomen is sharp mild intermittent nonradiating without a alleviating factors. He denies nausea vomiting fevers or chills. Review of systems is negative for chest pain shortness of breath nausea vomiting. All other review of systems is negative unless otherwise noted in history of present illness. ED course: 21-year-old male presenting with intermittent constipation. He has had a bowel movement recently. Upon arrival the patient is afebrile with mild tachycardia. The patient denies having abdominal pain currently. On physical exam he is a soft nontender abdomen without rebound tenderness or guarding. Negative McBurney's point. Negative Knowles sign. He is well-appearing otherwise. We were attempting to contact family to help with the patient's history when the patient eloped. Review of Systems Review of Systems SEE ABOVE. Allergies Allergies Allergies Coded Allergies Type Severity Reaction Last Updated Verified No Known Drug Allergies 11/15/15 No Physical Exam Physical Exam SEE ABOVE Constitutional: Well developed, well nourished, no acute distress, non-toxic appearance. HENT: Normocephalic, atraumatic, bilateral external ears normal, oropharynx moist, no oral exudates, nose normal. [] Eyes: PERRLA, EOMI, conjunctiva normal, no discharge. [] Neck: Normal range of motion, no tenderness, supple, no stridor. Cardiovascular:Heart rate regular rhythm, no murmur [] Lungs & Thorax: Bilateral breath sounds clear to auscultation Abdomen: Bowel sounds normal, soft, no tenderness, no masses, no pulsatile masses. [] Skin: Warm, dry, no erythema, no rash. Back: No tenderness, no CVA tenderness. [] Extremities: No tenderness, no cyanosis, no clubbing, ROM intact, no edema. Neurologic: Alert and oriented X 3, normal motor function, normal sensory function, no focal deficits noted. [] Psychologic: Affect normal, judgement normal, mood normal. [] Current Patient Data Vital Signs Vital Signs Date Time Temp Pulse Resp B/P (MAP) Pulse Ox O2 Delivery O2 Flow Rate FiO2 04/07/17 19:23 98.7 105 20 149/85 (106) 98 Room Air 98.7 EKG EKG [] Radiology/Procedures Radiology/Procedures [] Course & Med Decision Making Course & Med Decision Making Pertinent Labs and Imaging studies reviewed. (See chart for details) [] Dragon Disclaimer Dragon Disclaimer This electronic medical record was generated, in whole or in part, using a voice recognition dictation system. Departure Departure Impression: Primary Impression: Constipation Condition: GUARDED (Eloped) Referrals: NO PCP (PCP) BRITNEY LOMELI MD Apr 07, 2017 19:52
== END 2017-04-07 20:21 | disposition left against medical advice (07) ==
LOC: ER 19:00
DX: K59.00 Constipation, unspecified (principal); K21.9 Gastro-esophageal reflux disease without esophagitis; J45.909 Unspecified asthma, uncomplicated; F25.9 Schizoaffective disorder, unspecified; F98.8 Other specified behavioral and emotional disorders with onset usually occurring in childhood and adolescence
CPT/HCPCS: 99281

== ENCOUNTER 2017-04-08 12:15 | Emergency (ER) | payer BC ==
[2017-04-07 19:23] VITALS: BP 149/85
== END 2017-04-08 12:48 | disposition left against medical advice (07) ==
LOC: ER 12:15
DX: S61.511A Laceration without foreign body of right wrist, initial encounter (principal); Z53.21 Procedure and treatment not carried out due to patient leaving prior to being seen by health care provider; Y28.8XXA Contact with other sharp object, undetermined intent, initial encounter; Y93.G3 Activity, cooking and baking; Y99.8 Other external cause status; Y92.89 Other specified places as the place of occurrence of the external cause

== ENCOUNTER 2017-04-29 13:46 | Emergency (ER) | payer BC ==
[~2017-04-29] VITALS: Ht 185.4 cm; Wt 70.3 kg
[2017-04-29 14:38] LABS: BILIRUBIN,URINE NEGATIVE (NEG); GLUCOSE,URINE NEGATIVE (NEG); NITRITE,URINE NEGATIVE (NEG); PH,URINE 7.5; PROTEIN,URINE NEGATIVE (NEG-TRACE); UROBILINOGEN,URINE 0.2 mg/dL (0.2 mg/dL)
[2017-04-29 14:49] LABS: BACTERIA,URINE 0 /HPF (0-FEW); RBC,URINE 0 /HPF (0-2); SQUAMOUS EPITHELIAL CELL,UR FEW /LPF; WBC,URINE 0 /HPF (0-4)
[2017-04-29] MEDS ORDERED: IV NORMAL SALINE 1000ML BAG 1,000 ML IV ONE (15:00)
--- NOTE | 2017-04-29 15:11 | PHYS DOC ---
Past Medical History Past Medical History: Anxiety, Asthma, Depression, GERD, STD Additional Past Medical Histor: ADD, ADJUSTMENT DISORDER, SCHIZOAFFECTIVE DISORDER; herpes Past Surgical History: No Surgical History Alcohol Use: Occasionally Drug Use: Marijuana, Methamphetamine, Opiates, Other Adult General Chief Complaint Chief Complaint: CONSTIPATION HPI HPI Patient is a 22 year old male who presents with several month history of intermittent difficulties with constipation and vague abdominal pain. Has seen his primary care physician is been placed on various bowel regimens and in the last 24 hours has tried a fleets enema and magnesium citrate he's had 3 stools today but still feels like he might be constipated and wanted to be examined. No nausea vomiting or fever. No unexplained weight loss night sweats or chills. Denies any prior abdominal surgeries. Denies prior colonoscopy or endoscopy. Review of Systems Review of Systems Constitutional: Denies fever or chills [] Eyes: Denies change in visual acuity, redness, or eye pain [] HENT: Denies nasal congestion or sore throat [] Respiratory: Denies cough or shortness of breath [] Cardiovascular: No additional information not addressed in HPI [] GI: Denies abdominal pain, nausea, vomiting, bloody stools or diarrhea [] : Denies dysuria or hematuria [] Musculoskeletal: Denies back pain or joint pain [] Integument: Denies rash or skin lesions [] Neurologic: Denies headache, focal weakness or sensory changes [] Endocrine: Denies polyuria or polydipsia [] All other systems were reviewed and found to be within normal limits, except as documented in this note. Current Medications Current Medications Current Medications Medications (Trade) Dose Ordered Sig/[place] Start Time Stop Time Status Last Admin Dose Admin Info (Do NOT chart on this entry -- for MONITORING) 1 each PRN DAILY PRN 04/29/17 16:30 04/29/17 17:08 DC Iohexol (Omnipaque 300 Mg/ml) 75 ml 1X ONCE 04/29/17 16:30 04/29/17 16:31 DC Sodium Chloride 1,000 ml @ 1,000 mls/hr 1X ONCE 04/29/17 15:00 04/29/17 15:59 DC 04/29/17 15:05 1,000 MLS/HR Allergies Allergies Allergies Coded Allergies Type Severity Reaction Last Updated Verified No Known Drug Allergies 11/15/15 No Physical Exam Physical Exam Constitutional: Well developed, well nourished, no acute distress, non-toxic appearance. [] HENT: Normocephalic, atraumatic, bilateral external ears normal, oropharynx moist, no oral exudates, nose normal. [] Eyes: PERRLA, EOMI, conjunctiva normal, no discharge. [] Neck: Normal range of motion, no tenderness, supple, no stridor. [] Cardiovascular:Heart rate regular rhythm, no murmur [] Lungs & Thorax: Bilateral breath sounds clear to auscultation [] Abdomen: Bowel sounds normal, soft, mild poorly localized tenderness, no masses , no pulsatile masses. [] Skin: Warm, dry, no erythema, no rash. [] Back: No tenderness, no CVA tenderness. [] Extremities: No tenderness, no cyanosis, no clubbing, ROM intact, no edema. [] Neurologic: Alert and oriented X 3, normal motor function, normal sensory function, no focal deficits noted. [] Psychologic: Affect normal, judgement normal, mood normal. [] Current Patient Data Vital Signs Vital Signs Date Time Temp Pulse Resp B/P (MAP) Pulse Ox O2 Delivery O2 Flow Rate FiO2 04/29/17 16:03 86 16 122/80 (94) 97 Room Air 04/29/17 13:50 98.2 98.2 Lab Values Laboratory Tests Test 04/29/17 13:50 04/29/17 15:00 04/29/17 15:01 Urine Collection Type Unknown Urine Color Yellow Urine Clarity Clear Urine pH 7.5 Urine Specific [place] <=1.005 Urine Protein Negative mg/dL (NEG-TRACE) Urine Glucose (UA) Negative mg/dL (NEG) Urine Ketones (Stick) Negative mg/dL (NEG) Urine Blood Negative (NEG) Urine Nitrite Negative (NEG) Urine Bilirubin Negative (NEG) Urine Urobilinogen Dipstick 0.2 mg/dL (0.2 mg/dL) Urine Leukocyte Esterase Negative (NEG) Urine RBC 0 /HPF (0-2) Urine WBC 0 /HPF (0-4) Urine Squamous Epithelial Cells Few /LPF Urine Bacteria 0 /HPF (0-FEW) Magnesium Level 2.4 mg/dL (1.8-2.4) White Blood Count 9.3 x10^3/uL (4.0-11.0) Red Blood Count 5.75 x10^6/uL (4.30-5.70) H Hemoglobin 17.8 g/dL (13.0-17.5) H Hematocrit 52.8 % (39.0-53.0) Mean Corpuscular Volume 92 fL (79-100) Mean Corpuscular Hemoglobin 31 pg (25-35) Mean Corpuscular Hemoglobin Concent 34 g/dL (31-37) Red Cell Distribution Width 13.1 % (11.5-14.5) Platelet Count 209 x10^3/uL (140-400) Neutrophils (%) (Auto) 78 % (31-73) H Lymphocytes (%) (Auto) 14 % (24-48) L Monocytes (%) (Auto) 7 % (0-9) Eosinophils (%) (Auto) 1 % (0-3) Basophils (%) (Auto) 1 % (0-3) Neutrophils # (Auto) 7.2 x10^3uL (1.8-7.7) Lymphocytes # (Auto) 1.3 x10^3/uL (1.0-4.8) Monocytes # (Auto) 0.6 x10^3/uL (0.0-1.1) Eosinophils # (Auto) 0.1 x10^3/uL (0.0-0.7) Basophils # (Auto) 0.1 x10^3/uL (0.0-0.2) Sodium Level 139 mmol/L (136-145) Potassium Level 4.6 mmol/L (3.5-5.1) Chloride Level 99 mmol/L (98-107) Carbon Dioxide Level 33 mmol/L (21-32) H Anion Gap 7 (6-14) Blood Urea Nitrogen 8 mg/dL (8-26) Creatinine 1.3 mg/dL (0.7-1.3) Estimated GFR (Cockcroft-Gault) 82.1 BUN/Creatinine Ratio 6 (6-20) Glucose Level 76 mg/dL (70-99) Calcium Level 9.3 mg/dL (8.5-10.1) Total Bilirubin 0.5 mg/dL (0.2-1.0) Aspartate Amino Transferase (AST) 30 U/L (15-37) Alanine Aminotransferase (ALT) 45 U/L (16-63) Alkaline Phosphatase 104 U/L (46-116) Total Protein 8.3 g/dL (6.4-8.2) H Albumin 4.8 g/dL (3.4-5.0) Albumin/Globulin Ratio 1.4 (1.0-1.7) Lipase 183 U/L (73-393) Laboratory Tests 04/29/17 15:01 Laboratory Tests 04/29/17 15:01 EKG EKG [] Radiology/Procedures Radiology/Procedures Acute abdominal series multiple air-fluid levels no bowel obstruction chest x- ray clear eye review the images and reviewed the radiology report.[] Course & Med Decision Making Course & Med Decision Making Pertinent Labs and Imaging studies reviewed. (See chart for details) Labs unremarkable abdominal series showed possibility of a low-grade colitis no obstruction or perforation. Patient refused a CAT scan. He mentioned to the nurse that he had a recurrence of his genital herpes we'll place him on some acyclovir for that.[] Dragon Disclaimer Dragon Disclaimer This electronic medical record was generated, in whole or in part, using a voice recognition dictation system. Departure Departure Impression: Primary Impression: Acute abdominal pain Additional Impressions: Constipation Diarrhea Recurrent genital herpes simplex Disposition: HOME, SELF-CARE Condition: IMPROVED Referrals: NO PCP (PCP) Patient Instructions: Abdominal Pain (Nonspecific), Constipation, Adult, Easy- to-Read Scripts Acyclovir (ACYCLOVIR) 400 Mg Tablet 1 TAB PO TID for 5 Days, #15 TAB Prov: PRACHI ROMERO MD 04/29/17 Problem Qualifiers PRACHI ROMERO MD Apr 29, 2017 15:11
[2017-04-29 15:13] LABS: BASO # 0.1 x10^3/uL (0.0-0.2); BASO % 1 % (0-3); EOS % 1 % (0-3); HEMATOCRIT 52.8 % (39.0-53.0); HEMOGLOBIN 17.8 g/dL (13.0-17.5); LYMPH # 1.3 x10^3/uL (1.0-4.8); LYMPH % 14 % (24-48); MEAN CORPUSCULAR HEMOGLOBIN 31 pg (25-35); MEAN CORPUSCULAR HGB CONC 34 g/dL (31-37); MEAN CORPUSCULAR VOLUME 92 fL (79-100); MONO % 7 % (0-9); NEUT % 78 % (31-73); PLATELET COUNT 209 x10^3/uL (140-400); RED BLOOD COUNT 5.75 x10^6/uL (4.30-5.70); RED CELL DISTRIBUTION WIDTH 13.1 % (11.5-14.5); WHITE BLOOD COUNT 9.3 x10^3/uL (4.0-11.0)
--- NOTE | 2017-04-29 15:31 | RAD ---
Indication: Constipation. Technique: Abdominal series with PA chest radiograph contains 4 images. Findings: There is no dilated bowel loop. There are air-fluid levels throughout the colon. No air-fluid level within small bowel is apparent. There is no free air. The lungs are clear. The heart is not enlarged. Impression: Air-fluid levels throughout the colon without distention of the colon or small bowel. Findings may be secondary to diarrhea. Correlate with any concern for colitis.
[2017-04-29 15:34] LABS: CALCIUM 9.3 mg/dL (8.5-10.1); CREATININE 1.3 mg/dL (0.7-1.3); GFR 82.1; POTASSIUM 4.6 mmol/L (3.5-5.1)
[2017-04-29 15:38] LABS: ALBUMIN 4.8 g/dL (3.4-5.0); ALBUMIN/GLOBULIN RATIO 1.4 (1.0-1.7); TOTAL BILIRUBIN 0.5 mg/dL (0.2-1.0); TOTAL PROTEIN 8.3 g/dL (6.4-8.2)
[2017-04-29 16:03] VITALS: BP 122/80
[2017-04-29] MEDS ORDERED: CONTRAST GIVEN MC PRN (16:30)
[2017-04-29] MEDS ORDERED: IOHEXOL 300 MG/ML 100ML VIAL. IV ONE (16:30)
[2017-04-29] MEDS ORDERED: ACYC400T PO (17:00)
[2017-04-30] MEDS ORDERED: HYDR-2758 PO (07:20)
== END 2017-04-29 17:07 | disposition home or self-care (01) ==
LOC: ER 13:46
DX: K59.00 Constipation, unspecified (principal); R10.9 Unspecified abdominal pain; R19.7 Diarrhea, unspecified; A60.00 Herpesviral infection of urogenital system, unspecified; J45.909 Unspecified asthma, uncomplicated; K21.9 Gastro-esophageal reflux disease without esophagitis; F25.9 Schizoaffective disorder, unspecified; F98.8 Other specified behavioral and emotional disorders with onset usually occurring in childhood and adolescence; F12.10 Cannabis abuse, uncomplicated; F11.10 Opioid abuse, uncomplicated; F15.10 Other stimulant abuse, uncomplicated
CPT/HCPCS: 36415; 74022; 80053; 81001; 83690; 83735; 85025; 96360; 96361; 99285; J7030

== ENCOUNTER 2017-04-30 05:06 | Emergency (ER) | payer BC ==
[~2017-04-30] VITALS: Ht 182.9 cm; Wt 70.3 kg
[~2017-04-30 05:06] MED LIST changes: +ACYC400T PO
[2017-04-30 05:27] VITALS: BP 135/63
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
[2017-04-30] MEDS ORDERED: HYDR-2758 PO (07:20)
== END 2017-04-30 07:45 | disposition home or self-care (01) ==
LOC: ER 05:06
DX: S02.2XXA Fracture of nasal bones, initial encounter for closed fracture (principal); S10.91XA Abrasion of unspecified part of neck, initial encounter; S00.81XA Abrasion of other part of head, initial encounter; F41.9 Anxiety disorder, unspecified; J45.909 Unspecified asthma, uncomplicated; K21.9 Gastro-esophageal reflux disease without esophagitis; F32.9 Major depressive disorder, single episode, unspecified; F98.8 Other specified behavioral and emotional disorders with onset usually occurring in childhood and adolescence; F25.9 Schizoaffective disorder, unspecified; F12.10 Cannabis abuse, uncomplicated; F15.10 Other stimulant abuse, uncomplicated; F11.10 Opioid abuse, uncomplicated; Y04.0XXA Assault by unarmed brawl or fight, initial encounter; Y93.89 Activity, other specified; Y92.89 Other specified places as the place of occurrence of the external cause; Y99.8 Other external cause status
CPT/HCPCS: 70450; 70486; 72125; 99284-25

== ENCOUNTER 2017-07-05 19:29 | Emergency (ER) | payer BC | END 2017-07-05 20:35 | disposition home or self-care (01) | LOC: ER 20:35 | DX: B00.9 Herpesviral infection, unspecified (principal); F41.9 Anxiety disorder, unspecified; F32.9 Major depressive disorder, single episode, unspecified; F98.8 Other specified behavioral and emotional disorders with onset usually occurring in childhood and adolescence; F25.9 Schizoaffective disorder, unspecified | CPT/HCPCS: 99283 ==

== ENCOUNTER 2017-07-26 18:54 | Emergency (ER) | payer BC | END 2017-07-26 22:33 | disposition home or self-care (01) | LOC: ER 22:33 | DX: S16.1XXA Strain of muscle, fascia and tendon at neck level, initial encounter (principal); F41.9 Anxiety disorder, unspecified; F32.9 Major depressive disorder, single episode, unspecified; F98.8 Other specified behavioral and emotional disorders with onset usually occurring in childhood and adolescence; F25.9 Schizoaffective disorder, unspecified; F12.10 Cannabis abuse, uncomplicated; V43.52XA Car driver injured in collision with other type car in traffic accident, initial encounter; Y93.I9 Activity, other involving external motion; Y92.410 Unspecified street and highway as the place of occurrence of the external cause; Y99.8 Other external cause status | CPT/HCPCS: 70450; 72125; 99284-25 ==

== ENCOUNTER 2017-10-11 08:35 | Emergency (ER) | payer BC | END 2017-10-11 10:01 | disposition home or self-care (01) | LOC: ER 08:35 | DX: F32.0 Major depressive disorder, single episode, mild (principal); F15.90 Other stimulant use, unspecified, uncomplicated; E86.0 Dehydration; F12.10 Cannabis abuse, uncomplicated; F17.210 Nicotine dependence, cigarettes, uncomplicated; F41.9 Anxiety disorder, unspecified; Z59.0 Homelessness | CPT/HCPCS: 99283; 99284 ==

== ENCOUNTER 2018-02-15 17:00 | Emergency (ER) | payer BC ==
[~2018-02-15] VITALS: Ht 182.9 cm; Wt 68.0 kg
[~2018-02-15 17:00] MED LIST changes: +ACYC200C PO; +HYDR-2758 PO
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
[2018-02-15] MEDS ORDERED: IBUPROFEN 600 MG TABLET. PO ONE (18:00)
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
[2018-02-15 18:27] VITALS: BP 119/62
== END 2018-02-15 18:35 | disposition home or self-care (01) ==
LOC: ER 17:00
DX: K08.89 Other specified disorders of teeth and supporting structures (principal); R51 Headache; F41.9 Anxiety disorder, unspecified; F32.9 Major depressive disorder, single episode, unspecified
CPT/HCPCS: 70450; 70486; 72125; 99284

== ENCOUNTER 2018-03-06 16:18 | Emergency (ER) | payer SELFPAY ==
[~2018-03-06] VITALS: Ht 182.9 cm; Wt 68.0 kg
[2018-03-06 16:22] VITALS: BP 137/63
--- NOTE | 2018-03-06 16:32 | PHYS DOC ---
Past Medical History Past Medical History: Anxiety, Depression, Schizophrenia Additional Past Medical Histor: ADD, ADJUSTMENT DISORDER, SCHIZOAFFECTIVE DISORDER; herpes Past Surgical History: No Surgical History Alcohol Use: None Drug Use: None Adult General Chief Complaint Chief Complaint: DIZZY/LIGHT HEADED HPI HPI Patient is a 22 year old male with history of depression, schizophrenia, anxiety, homelessness, who presents today complaining of an episode of dizziness that occurred [place]. Patient denies anything exacerbating or making his dizziness better. Denies any nausea vomiting. Denies any fever coughing or congestion. Denies any headache. He states he feels better now that he is in the low place. Review of Systems Review of Systems Constitutional: Denies fever or chills [] Eyes: Denies change in visual acuity, redness, or eye pain [] HENT: Denies nasal congestion or sore throat [] Respiratory: Denies cough or shortness of breath [] Cardiovascular: No additional information not addressed in HPI [] GI: Denies abdominal pain, nausea, vomiting, bloody stools or diarrhea [] : Denies dysuria or hematuria [] Musculoskeletal: Denies back pain or joint pain [] Integument: Denies rash or skin lesions [] Neurologic: Reports dizziness. Denies headache, focal weakness or sensory changes [] All other systems were reviewed and found to be within normal limits, except as documented in this note. Current Medications Current Medications Current Medications Medications (Trade) Dose Ordered Sig/Ansley Start Time Stop Time Status Last Admin Dose Admin Potassium Chloride (Klor-Con) 40 meq 1X ONCE 03/06/18 17:30 03/06/18 17:31 Allergies Allergies Allergies Coded Allergies Type Severity Reaction Last Updated Verified No Known Drug Allergies 11/15/15 No Physical Exam Physical Exam Constitutional: Well developed, well nourished, no acute distress, non-toxic appearance. [] HENT: Normocephalic, atraumatic, bilateral external ears normal, oropharynx moist, no oral exudates, nose normal. [] Eyes: PERRLA, EOMI, conjunctiva normal, no discharge. [] Neck: Normal range of motion, no tenderness, supple, no stridor. [] Cardiovascular:Heart rate regular rhythm, no murmur [] Lungs & Thorax: Bilateral breath sounds clear to auscultation [] Abdomen: Bowel sounds normal, soft, no tenderness, no masses, no pulsatile masses. [] Skin: Warm, dry, no erythema, no rash. [] Back: No tenderness, no CVA tenderness. [] Extremities: No tenderness, no cyanosis, no clubbing, ROM intact, no edema. [] Neurologic: Alert and oriented X 3, normal motor function, normal sensory function, no focal deficits noted. Cranial nerves II through XII intact Psychologic: Smiling inappropriately. Current Patient Data Vital Signs Vital Signs Date Time Temp Pulse Resp B/P (MAP) Pulse Ox O2 Delivery O2 Flow Rate FiO2 03/06/18 16:22 97.9 89 18 137/63 (87) 99 Room Air 97.9 Lab Values Laboratory Tests Test 03/06/18 16:24 White Blood Count 6.7 x10^3/uL (4.0-11.0) Red Blood Count 4.71 x10^6/uL (4.30-5.70) Hemoglobin 14.9 g/dL (13.0-17.5) Hematocrit 42.5 % (39.0-53.0) Mean Corpuscular Volume 90 fL (79-100) Mean Corpuscular Hemoglobin 32 pg (25-35) Mean Corpuscular Hemoglobin Concent 35 g/dL (31-37) Red Cell Distribution Width 12.5 % (11.5-14.5) Platelet Count 165 x10^3/uL (140-400) Neutrophils (%) (Auto) 67 % (31-73) Lymphocytes (%) (Auto) 22 % (24-48) L Monocytes (%) (Auto) 8 % (0-9) Eosinophils (%) (Auto) 2 % (0-3) Basophils (%) (Auto) 1 % (0-3) Neutrophils # (Auto) 4.5 x10^3uL (1.8-7.7) Lymphocytes # (Auto) 1.5 x10^3/uL (1.0-4.8) Monocytes # (Auto) 0.6 x10^3/uL (0.0-1.1) Eosinophils # (Auto) 0.1 x10^3/uL (0.0-0.7) Basophils # (Auto) 0.1 x10^3/uL (0.0-0.2) Sodium Level 145 mmol/L (136-145) Potassium Level 3.3 mmol/L (3.5-5.1) L Chloride Level 106 mmol/L (98-107) Carbon Dioxide Level 30 mmol/L (21-32) Anion Gap 9 (6-14) Blood Urea Nitrogen 14 mg/dL (8-26) Creatinine 1.0 mg/dL (0.7-1.3) Estimated GFR (Cockcroft-Gault) 111.1 Glucose Level 128 mg/dL (70-99) H Calcium Level 9.0 mg/dL (8.5-10.1) Troponin I Quantitative < 0.017 ng/mL (0.000-0.055) Ethyl Alcohol Level < 10 mg/dL (0-10) Laboratory Tests 03/06/18 16:24 Laboratory Tests 03/06/18 16:24 EKG EKG [] Radiology/Procedures Radiology/Procedures [] Course & Med Decision Making Course & Med Decision Making Pertinent Labs and Imaging studies reviewed. (See chart for details) This is a 22-year-old male patient with history of schizophrenia, anxiety, depression, homelessness, presenting today [place] Patient arrives in the ED smiling and laughing inappropriately. CBC with with no acute findings, BMP with potassium of 3.3, patient was given oral potassium replacement. Troponin is normal. Vitals are normal. Patient was given a meal tray which he finished. He is currently sleeping and states he is feeling better. He declined to give us urine. Will be discharged home. Follow- up with his own PCP as needed. Dragon Disclaimer Dragon Disclaimer This electronic medical record was generated, in whole or in part, using a voice recognition dictation system. Departure Departure Impression: Primary Impression: Dizziness Disposition: 01 HOME, SELF-CARE Condition: STABLE Referrals: NO PCP (PCP) Follow-up with your doctor next week as needed Patient Instructions: Dizziness, [id number]-[id number] Additional Instructions: You were evaluated in the emergency room for dizziness. We recommend you push fluids. Avoid being out in the heat. Follow-up with your own doctor as soon as possible. VIANNEY MARTIN APRN Mar 06, 2018 16:32
[2018-03-06 16:40] LABS: BASO # 0.1 x10^3/uL (0.0-0.2); BASO % 1 % (0-3); EOS # 0.1 x10^3/uL (0.0-0.7); EOS % 2 % (0-3); HEMATOCRIT 42.5 % (39.0-53.0); HEMOGLOBIN 14.9 g/dL (13.0-17.5); LYMPH # 1.5 x10^3/uL (1.0-4.8); LYMPH % 22 % (24-48); MEAN CORPUSCULAR HEMOGLOBIN 32 pg (25-35); MEAN CORPUSCULAR HGB CONC 35 g/dL (31-37); MEAN CORPUSCULAR VOLUME 90 fL (79-100); MONO # 0.6 x10^3/uL (0.0-1.1); MONO % 8 % (0-9); NEUT # 4.5 x10^3uL (1.8-7.7); NEUT % 67 % (31-73); PLATELET COUNT 165 x10^3/uL (140-400); RED BLOOD COUNT 4.71 x10^6/uL (4.30-5.70); RED CELL DISTRIBUTION WIDTH 12.5 % (11.5-14.5); WHITE BLOOD COUNT 6.7 x10^3/uL (4.0-11.0)
[2018-03-06 16:54] LABS: GFR 111.1; POTASSIUM 3.3 mmol/L (3.5-5.1)
[2018-03-06] MEDS ORDERED: POTASSIUM CHLORIDE 20 MEQ TABLET.ER. PO ONE (17:30)
== END 2018-03-06 17:52 | disposition home or self-care (01) ==
LOC: ER 16:18
DX: R42 Dizziness and giddiness (principal); F32.9 Major depressive disorder, single episode, unspecified; F41.9 Anxiety disorder, unspecified; F20.9 Schizophrenia, unspecified; Z59.0 Homelessness
CPT/HCPCS: 36415; 80048; 84484; 85025; 99284; G0480

== ENCOUNTER 2018-03-21 01:20 | Emergency (ER) | payer SELFPAY ==
[~2018-03-21] VITALS: Ht 172.7 cm; Wt 68.0 kg
[2018-03-21] MEDS ORDERED: DIPHTH,PERTUSS(ACELL),TET TOX 0.5 ML DISP.SYRIN. VAX IM ONE (01:45)
[2018-03-21] MEDS ORDERED: QUEtiapine 25 MG TABLET. PO ONE (01:45)
[2018-03-21 02:29] LABS: BASO # 0.1 x10^3/uL (0.0-0.2); BASO % 1 % (0-3); EOS # 0.2 x10^3/uL (0.0-0.7); EOS % 2 % (0-3); HEMATOCRIT 46.9 % (39.0-53.0); HEMOGLOBIN 16.1 g/dL (13.0-17.5); LYMPH # 1.4 x10^3/uL (1.0-4.8); LYMPH % 19 % (24-48); MEAN CORPUSCULAR HEMOGLOBIN 31 pg (25-35); MEAN CORPUSCULAR HGB CONC 34 g/dL (31-37); MEAN CORPUSCULAR VOLUME 91 fL (79-100); MONO # 0.5 x10^3/uL (0.0-1.1); MONO % 7 % (0-9); NEUT # 5.3 x10^3uL (1.8-7.7); NEUT % 70 % (31-73); PLATELET COUNT 160 x10^3/uL (140-400); RED BLOOD COUNT 5.16 x10^6/uL (4.30-5.70); RED CELL DISTRIBUTION WIDTH 12.7 % (11.5-14.5); WHITE BLOOD COUNT 7.5 x10^3/uL (4.0-11.0)
[2018-03-21 02:39] LABS: CALCIUM 9.5 mg/dL (8.5-10.1); CREATININE 1.2 mg/dL (0.7-1.3); POTASSIUM 3.6 mmol/L (3.5-5.1)
[2018-03-21 02:42] LABS: ACETAMIN < 2 mcg/ml (10-30); ETHANOL < 10 mg/dL (0-10); SALIC < 2.8 mg/dL (2.8-20.0)
[2018-03-21 02:44] LABS: ALBUMIN 4.2 g/dL (3.4-5.0); ALBUMIN/GLOBULIN RATIO 1.4 (1.0-1.7); TOTAL BILIRUBIN 0.8 mg/dL (0.2-1.0); TOTAL PROTEIN 7.3 g/dL (6.4-8.2)
[2018-03-21 04:22] VITALS: BP 132/59
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
--- NOTE | 2018-03-21 04:55 | RAD ---
RIGHT HAND, VIEWS 3 Indication: laceration to hand Comparison: Right hand, 2 views, May 16, 2015. Findings: There is no acute fracture or dislocation. Bony articulations are normal. There is no bony erosion. Mineralization is normal. There is no radiographically apparent soft tissue swelling or radiopaque foreign body. IMPRESSION: No acute bone abnormality. Electronically signed by: Rc Mccullough MD (03/21/2018 4:52 AM) [id number]
== END 2018-03-21 04:23 | disposition home or self-care (01) ==
LOC: ER 01:20
DX: F20.9 Schizophrenia, unspecified (principal); M79.89 Other specified soft tissue disorders; F41.9 Anxiety disorder, unspecified; F32.9 Major depressive disorder, single episode, unspecified; Z59.0 Homelessness
CPT/HCPCS: 36415; 73130; 80053; 80329; 85025; 90471; 90715; 99285; G0480; G6039; 99284